=== PATIENT | male | born 1960 | race Caucasian/White ===

== ENCOUNTER → 2017-01-05 | Day surgery (SDC) | payer MEDICARE ==
[~2017-01-05] VITALS: Ht 170.2 cm; Wt 84.0 kg
[~2017-01-05] MED LIST: AMLO5 PO; ASPI1TAB69 PO; CLEO300C2 PO; CYCLOPENTOLATE HCL 1% OPHT SOLN 2 ML BTL ONE; FLURBIPROFEN 0.03% OPHT SOLN 2.5 ML BTL ONE; GABA300C5 PO; GLIM2TAB PO; HYALURONIDASE/LIDOCAINE/EPINEPHRINE/BUPIVACAINE 6 ML SYR ONE; HYDR-3580 PO; LIDOCAINE HCL 1% 30 ML VIAL ONE; METF500T PO; MIDAZOLAM HCL 2 MG/2 ML VIAL ONE; MORP1TAB25 PO; OXYM20TA PO; PHENYLEPHRINE HCL 10% OPTH SOLN 5 ML BTL ONE; PROPARACAINE HCL 0.5% OPHT SOLN 15 ML BTL ONE; PROPOFOL 200 MG/20 ML AMP ONE; RAMI10CA PO; SODIUM CHLORID 0.9% 500 ML INJ 500 ML ONE; TEMA15CA PO; TROPICAMIDE 1% OPHT SOLN 15 ML BTL ONE; TUMS500C CHEW; VITA100064 PO; hydrocodone PO
[2017-01-05 09:05] VITALS: PULSE 62
[2017-01-05 09:22] VITALS: BP 142/85; PULSE 62; RESP 16; TEMP 97.9; O2SAT 97
[2017-01-05] MEDS: TOBRAMYCIN/DEXAMETHASONE OPTH OINT 3.5 GM TUBE ONE ×2 (10:30→10:48)
[2017-01-05 10:55] VITALS: TEMP 98
[2017-01-05 11:30] VITALS: BP 160/88; PULSE 60; RESP 16; O2SAT 97
--- NOTE | 2017-01-06 17:01 | MP ---
cc: JOHN LOWE M.D. Corrected Copy: 01/17/17 [facility] #[id number] DATE OF SURGERY 01/05/17 POSTOPERATIVE DIAGNOSIS: Visually significant cataract right eye. OPERATION: Phacoemulsification with posterior chamber lens implantation, right eye. SURGEON: John Lowe MD ANESTHESIA: Retrobulbar with MAC. COMPLICATIONS: None. PROCEDURE: After informed consent was obtained, the patient was brought into the operative suite and placed on appropriate monitors by the Anesthesia Service. The patient had received a prior retrobulbar injection of local anesthetic by the Anesthesia Service in the holding area. The patient's operative eye was then prepped and draped in the usual sterile fashion. A wire lid speculum was placed. A paracentesis incision was made in the peripheral cornea with a 1 mm loc keratome. The anterior chamber was filled with viscoelastic. The anterior chamber was then entered through a stepped, clear corneal incision using a sharp 3 mm loc keratome. A circular tear capsulorrhexis was then made with a bent needle cystitome. Following hydrodissection of the lens nucleus with balanced saline, phaco-emulsification of the nucleus was performed using a modified chopping technique. The remaining cortex was removed with irrigation/aspiration. The prior two procedures were both performed using the handpieces of the [employer] phaco unit. The capsular bag was then filled with viscoelastic. The intraocular lens was then injected into the capsular bag and positioned. The type of intraocular lens and its power can be found elsewhere in this chart. The remaining viscoelastic was then removed from the anterior chamber with the IA handpiece. The anterior chamber was reformed with balanced saline. The wound was then closed securely with stromal hydration. It was found to be watertight to an intraocular pressure of at least 30 mmHg by palpation. A small amount of balanced salt solution was then removed through the paracentesis site and the intraocular pressure at the end of the case was approximately 20 by palpation. All drapes were then removed. TobraDex ointment was then placed in the eye, which was closed beneath a semi-pressure patch dressing. The patient tolerated this procedure well and left the operating room awake and alert. The patient is to follow-up in my office in the morning. ADDENDUM After the clear corneal incisions were sealed watertight, an 8 mm limbal relaxing incision was made with a 600 micron loc blade, centered around a nasal 180 degree [place]. MD JEANETTE Romano/ /11:05 AM /10:04 AM
== END | disposition home or self-care (01) ==
LOC: CSDC 08:14
PROVIDERS: ATTEND Optometrist Occupational Vision
DX: H25.811 Combined forms of age-related cataract, right eye (principal); B19.20 Unspecified viral hepatitis C without hepatic coma
CPT/HCPCS: 00142; 66984; J2250; J7040; V2632

== ENCOUNTER 2017-04-17 09:02 | Day surgery (SDC) | payer MEDICARE ==
[2017-04-17] VITALS (9 sets, daily range): BP systolic 116–170; BP diastolic 52–96; PULSE 59–68; RESP 16–20; TEMP 97.7–97.8; O2SAT 16–99
[~2017-04-17] VITALS: Ht 170.2 cm; Wt 84.1 kg
[~2017-04-17 09:02] MED LIST changes: -AMLO5 PO; -CLEO300C2 PO; -CYCLOPENTOLATE HCL 1% OPHT SOLN 2 ML BTL ONE; -FLURBIPROFEN 0.03% OPHT SOLN 2.5 ML BTL ONE; -GABA300C5 PO; -HYALURONIDASE/LIDOCAINE/EPINEPHRINE/BUPIVACAINE 6 ML SYR ONE; -LIDOCAINE HCL 1% 30 ML VIAL ONE; -MIDAZOLAM HCL 2 MG/2 ML VIAL ONE; -OXYM20TA PO; -PHENYLEPHRINE HCL 10% OPTH SOLN 5 ML BTL ONE; -PROPARACAINE HCL 0.5% OPHT SOLN 15 ML BTL ONE; -PROPOFOL 200 MG/20 ML AMP ONE; -SODIUM CHLORID 0.9% 500 ML INJ 500 ML ONE; -TROPICAMIDE 1% OPHT SOLN 15 ML BTL ONE; -hydrocodone PO
[2017-04-17] MEDS ORDERED: GABA300C5 PO (09:51)
[2017-04-17] MEDS ORDERED: SODIUM CHLOR 0.9% 1000 ML IV SCH (10:00)
[2017-04-17 10:16] LABS: AUTOMATED NEUTROPHIL # 4.9 TH/MM3 (1.8-7.7); BASOPHIL # 0.1 TH/MM3 (0-0.2); BASOPHIL % 0.6 % (0.0-2.0); EOSINOPHIL # 0.1 TH/MM3 (0-0.4); EOSINOPHIL % 1.1 % (0.0-4.0); HEMATOCRIT 44.8 % (39.0-51.0); HEMO FLAGS DIFF FINAL; LYMPH % 33.3 % (9.0-44.0); LYMPHOCYTE # 2.8 TH/MM3 (1.0-4.8); MEAN CELL VOLUME 92.2 FL (80.0-100.0); MEAN CORPUSCULAR HEMOGLOBIN 31.7 PG (27.0-34.0); MEAN CORPUSCULAR HGB CONC 34.4 % (32.0-36.0); MONO % 7.6 % (0.0-8.0); NEUT % 57.4 % (16.0-70.0); PLATELET COUNT 160 TH/MM3 (150-450); RED BLOOD COUNT 4.85 MIL/MM3 (4.50-5.90); RED CELL DISTRIBUTION WIDTH 13.7 % (11.6-17.2); WHITE BLOOD COUNT 8.6 TH/MM3 (4.0-11.0)
[2017-04-17] MEDS ORDERED: LIDOCAINE 1%/EPINEPHrine 1:100,000 SOLN 20 ML VIAL ONE (10:33)
[2017-04-17] MEDS ORDERED: fentaNYL CITRATE 250 MCG/5 ML AMP ONE (10:55)
[2017-04-17] MEDS ORDERED: MIDAZOLAM HCL 5 MG/5 ML VIAL ONE (10:55)
[2017-04-17] MEDS ORDERED: HYDROmorphone HCL 2 MG TAB PO PRN (11:45)
--- NOTE | 2017-04-17 16:02 | RADRPT ---
EXAM DATE/TIME: 04/17/2017 11:05 [place] COMPARISON: No previous studies available for comparison. INDICATIONS : Hepatitis C. SEDATION TIME: 30 minutes BIOPSY SITE: Liver MEDICATION(S): 1.) 3 mg midazolam (Versed) IV 2.) 150 mcg fentanyl (Sublimaze) IV DEVICE(S): 1.) 18 gauge Temno core biopsy needle MEDICAL HISTORY : Hepatitis C. SURGICAL HISTORY : None. ENCOUNTER: Initial ACUITY: 1 day PAIN SCORE: 0/10 LOCATION: liver A total of two core specimen(s) were obtained and sent to the laboratory for pathologic evaluation. PROCEDURE: 1. CT guided liver biopsy. 2. Conscious sedation with continuous EKG and oximetry monitoring. 3. EKG and oximetry remained stable throughout the procedure. Prior to the procedure informed consent was obtained. Any appropriate prior imaging studies were rev iewed. Using automated exposure control and adjustment of the mA and/or kV according to patient size, radiat ion dose was kept as low as reasonably achievable to obtain optimal diagnostic quality images. The site was prepped in a sterile fashion. Full sterile technique was used, including cap, mask, ran rile gloves and gown and a large sterile sheet. Hand hygiene and 2% chlorhexidine and/or betadine/al cohol prep was utilized per protocol for cutaneous antisepsis. The skin and subcutaneous tissues wer e infiltrated with local anesthetic solution. With CT guidance the right lobe of the liver was localized. Biopsy was performed using the prescribed needle as above. Adequate hemostasis was obtained with compression at the puncture site. Follow-up CT scan reveals no hemorrhage or acute abnormality. The patient tolerated the procedure well and there were no complications. The patient was returned to the Radiology Outpatient Unit in stable condition. CONCLUSION: Uncomplicated CT guided biopsy of the liver. Bird Figueroa MD on April 17, 2017 at 16:00 Board Certified Radiologist. This report was verified electronically.
== END 2017-04-17 15:11 | disposition home or self-care (01) ==
LOC: HRAD 09:02 → HRIP 09:03 → HRAD 15:11
PROVIDERS: ATTEND Specialist
DX: B18.2 Chronic viral hepatitis C (principal)
CPT/HCPCS: 47000; 77012; 85025; 88307; 88313; J2250; J3010; J7030